=== PATIENT | female | born 1980 | race Caucasian/White ===

== ENCOUNTER 2021-01-02 23:18 | Emergency (ER) | payer OTHER ==
[2021-01-03] MEDS ORDERED: VENTOLIN HFA 66.7 GM INH (02:37)
[2021-01-03] MEDS ORDERED: LODINE CAP 300300 MG PO (02:37)
== END 2021-01-03 02:55 | disposition home or self-care (01) ==
LOC: ER1 23:18
DX: U07.1 COVID-19 (principal)
CPT/HCPCS: 71045; 99284; U0002

== ENCOUNTER 2021-01-11 18:10 | Emergency (ER) | payer OTHER ==
[~2021-01-11 18:10] MED LIST: LODINE CAP 300300 MG PO; VENTOLIN HFA 66.7 GM INH
[2021-01-11] MEDS ORDERED: VENTOLIN HFA 66.7 GM INH (20:48)
[2021-01-11] MEDS ORDERED: DOXYCYCLINE MO100 MG PO (20:48)
[2021-01-11] MEDS ORDERED: LODINE CAP 300300 MG PO (20:48)
[2021-01-11] MEDS ORDERED: DECADRON6 MG PO (20:55)
== END 2021-01-11 21:10 | disposition home or self-care (01) ==
LOC: ER1 18:10
DX: U07.1 COVID-19 (principal)
CPT/HCPCS: 71045; 99284

== ENCOUNTER → 2021-03-24 | Outpatient (CLI) | payer OTHER ==
[~2021-03-24] MED LIST changes: +DECADRON6 MG PO; +DOXYCYCLINE MO100 MG PO
[2021-03-24 19:48] LABS: HEMOGLOBIN 13.2 gm/dl (12.3-15.3); RED BLOOD COUNT 4.53 M/UL (4.00-5.10); WHITE BLOOD COUNT 7.3 K/UL (4.5-11.0)
[2021-03-24 20:13] LABS: BUN/CREATININE RATIO 12 (0-10)
[2021-03-26 16:14] LABS: TREPONEMA PALLIDUM ANTIBODIES Non Reactive (Non Reactive)
== END ==
LOC: LAB 18:56
PROVIDERS: Nurse Practitioner Family
DX: F11.20 Opioid dependence, uncomplicated (principal); R10.11 Right upper quadrant pain
CPT/HCPCS: 80053; 85025; 86780; G0480